=== PATIENT | female | born 1975 | race Caucasian/White ===

== ENCOUNTER 2017-02-26 21:35 | Emergency (ER) | payer BC ==
[~2017-02-26] VITALS: Ht 154.9 cm; Wt 63.5 kg
[~2017-02-26 21:35] MED LIST: PREN1TAB49 PO
[2017-02-26 21:49] VITALS: BP_SYST 133
[2017-02-26] MEDS ORDERED: KETOROLAC TROMETHAMINE 60 MG/2 ML VIAL IM ONE (22:00)
[2017-02-26 22:53] VITALS: BP_SYST 132
== END 2017-02-26 22:53 | disposition home or self-care (01) ==
LOC: SED 21:35
DX: S93.601A Unspecified sprain of right foot, initial encounter (principal); X58.XXXA Exposure to other specified factors, initial encounter; Y93.89 Activity, other specified; Y99.8 Other external cause status; Y92.89 Other specified places as the place of occurrence of the external cause
CPT/HCPCS: 73610; 73630; 81025; 96372; 99284; J1885